=== PATIENT | female | born 2000 | race Two or more races ===

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

== ENCOUNTER 2021-12-19 10:40 | Inpatient (IN) | payer OTHER ==
[2021-12-19 11:32] LABS: BASO % 0.2 % (0-2.0); EOS % 0.1 % (0-4.5); HEMATOCRIT 36.2 % (32.4-45.2); HEMOGLOBIN 11.8 GM/dL (10.7-15.3); LYMPH % 12.5 % (8-40); MCH 28.5 pg (25.7-33.7); MCHC 32.5 g/dl (32.0-36.0); MEAN CELL VOLUME 87.6 fl (80-96); MEAN PLT VOLUME 10.3 fl (7.5-11.1); MONO % 6.4 % (3.8-10.2); NEUT % 80.8 % (42.8-82.8); PLATELET COUNT 131 10^3/uL (134-434); RBC 4.14 M/mm3 (3.60-5.2); RDW 16.3 % (11.6-15.6); WHITE BLOOD COUNT 15.9 K/mm3 (4.0-10.0)
[2021-12-19 11:39] LABS: INR 0.97 (0.83-1.09); PROTHROMBIN TIME (PATIENT) 11.2 SEC (9.7-13.0)
[2021-12-19 11:42] LABS: ACTIVATED PTT 28.7 SECONDS (25.2-36.5)
[2021-12-19 11:57] LABS: BLOOD UREA NITROGEN 4.2 mg/dL (7-18)
[2021-12-19 12:00] LABS: CREATININE 0.5 mg/dL (0.55-1.3)
[2021-12-19 12:29] VITALS: BMI 39.6
[2021-12-19] MEDS ORDERED: ACETAMINOPHEN 325 MG TABLET (FP) PO PRN (13:41)
[2021-12-19] MEDS ORDERED: METHYLERGONOVINE MALEATE 0.2 MG/1 ML AMP IM PRN (13:41)
[2021-12-19] MEDS ORDERED: IBUPROFEN 800 MG/8 ML IJ IVPB PRN (13:41)
[2021-12-19] MEDS ORDERED: ELECTROLYTE-148 SOLN 1,000 ML IV SCH (13:45)
[2021-12-19] MEDS ORDERED: AMPICILLIN - 2 GM in SODIUM CHLORIDE 100 ML IVPB ONE ×2 (13:51→16:30)
[2021-12-19] MEDS ORDERED: morphine SULFATE/PF 1 MG/2 ML (2cc Syringe - QUVA) ONE (14:06)
[2021-12-19 15:07] LABS: HIV INTERPRETATION NEGATIVE (NEGATIVE)
[2021-12-19] MEDS ORDERED: CITRIC ACID/SODIUM CITRATE 30 ML UNIT-DOSE CUP PO ONE (15:18)
[2021-12-19 15:43] LABS: CORD BASE EXCESS -3.6 mmol/L (0-2); CORD HCO3 21.8 mmHg (20-29); CORD PCO2 40.9 mmHg (30-78); CORD pH 7.345 (7.14-7.44)
[2021-12-19 15:46] LABS: CORD HCO3 21.1 mmHg (20-29); CORD pH 7.226 (7.14-7.44)
[2021-12-19] MEDS: OXYTOCIN 20 UNITS in 0.9% NS 20 UNIT/1,000 ML INFUS.BAG IV SCH (17:00)
[2021-12-19] MEDS ORDERED: OXYTOCIN 20 UNITS in 0.9% NS 20 UNIT/1,000 ML INFUS.BAG IV ONE (17:09)
[2021-12-19] MEDS: FERROUS SO4 325 MG TABLET (FP) PO SCH (18:38)
[2021-12-19] MEDS: SENNOSIDES/DOCUSATE COMBO (SENNA PLUS) TABLET (UD) PO PRN (22:31)
[2021-12-19] MEDS: SIMETHICONE 80 MG TAB.CHEW (FP) PO PRN (22:31)
[2021-12-20] MEDS: OXYTOCIN 20 UNITS in 0.9% NS 20 UNIT/1,000 ML INFUS.BAG IV SCH (00:07)
[2021-12-20] MEDS: AMPICILLIN - 1 GM in SODIUM CHLORIDE 100 ML IVPB SCH (07:24)
[2021-12-20] MEDS: FERROUS SO4 325 MG TABLET (FP) PO SCH ×2 (09:27→17:30)
[2021-12-20] MEDS: PRENATAL VITAMINS W/ FOLIC ACID TABLET (FP) PO SCH (09:27)
[2021-12-20 09:33] LABS: BASO % 0.2 % (0-2.0); EOS % 0.5 % (0-4.5); HEMOGLOBIN 11.2 GM/dL (10.7-15.3); LYMPH % 12.5 % (8-40); MCH 28.8 pg (25.7-33.7); MCHC 32.9 g/dl (32.0-36.0); MEAN CELL VOLUME 87.3 fl (80-96); MEAN PLT VOLUME 10.3 fl (7.5-11.1); MONO % 6.8 % (3.8-10.2); PLATELET COUNT 113 10^3/uL (134-434); RBC 3.89 M/mm3 (3.60-5.2); RDW 16.6 % (11.6-15.6)
[2021-12-20] MEDS ORDERED: BISACODYL 10 MG SUPP.RECT RC PRN (13:41)
[2021-12-21] MEDS ORDERED: oxyCODONE HCL 5 MG TABLET PO PRN ×2 (01:41)
[2021-12-21] MEDS: IBUPROFEN 600 MG TABLET (FP) PO PRN ×2 (09:33→21:28)
[2021-12-21] MEDS: PRENATAL VITAMINS W/ FOLIC ACID TABLET (FP) PO SCH (09:33)
[2021-12-21] MEDS: SIMETHICONE 80 MG TAB.CHEW (FP) PO PRN ×2 (09:33→21:28)
[2021-12-21] MEDS: FERROUS SO4 325 MG TABLET (FP) PO SCH ×2 (09:33→17:04)
[2021-12-21] MEDS: AMOX TR/POT CLAV 500MG/125MG TABLETS (FP) PO SCH ×2 (12:37→17:04)
[2021-12-21] MEDS: SENNOSIDES/DOCUSATE COMBO (SENNA PLUS) TABLET (UD) PO PRN (21:30)
[2021-12-22] MEDS: AMOX TR/POT CLAV 500MG/125MG TABLETS (FP) PO SCH ×2 (07:45→16:41)
[2021-12-22] MEDS: FERROUS SO4 325 MG TABLET (FP) PO SCH ×2 (07:45→16:42)
[2021-12-22] MEDS: PRENATAL VITAMINS W/ FOLIC ACID TABLET (FP) PO SCH (09:37)
[2021-12-22 10:15] LABS: BASO % 0.3 % (0-2.0); EOS % 1.9 % (0-4.5); HEMATOCRIT 33.6 % (32.4-45.2); HEMOGLOBIN 10.9 GM/dL (10.7-15.3); LYMPH % 20.9 % (8-40); MCH 28.6 pg (25.7-33.7); MCHC 32.6 g/dl (32.0-36.0); MEAN CELL VOLUME 87.6 fl (80-96); MEAN PLT VOLUME 9.8 fl (7.5-11.1); MONO % 5.6 % (3.8-10.2); NEUT % 71.3 % (42.8-82.8); PLATELET COUNT 136 10^3/uL (134-434); RBC 3.83 M/mm3 (3.60-5.2); RDW 16.2 % (11.6-15.6); WHITE BLOOD COUNT 16.8 K/mm3 (4.0-10.0)
[2021-12-22] MEDS: ENOXAPARIN NA (PORCINE) 40 MG/0.4 ML DISP.SYRIN SQ SCH (12:01)
[2021-12-22 16:03] LABS: BASO % 0.4 % (0-2.0); EOS % 1.7 % (0-4.5); HEMATOCRIT 35.4 % (32.4-45.2); HEMOGLOBIN 11.3 GM/dL (10.7-15.3); LYMPH % 16.3 % (8-40); MCH 28.3 pg (25.7-33.7); MCHC 31.9 g/dl (32.0-36.0); MEAN CELL VOLUME 88.7 fl (80-96); MEAN PLT VOLUME 10.1 fl (7.5-11.1); MONO % 5.4 % (3.8-10.2); NEUT % 76.2 % (42.8-82.8); PLATELET COUNT 157 10^3/uL (134-434); RDW 16.3 % (11.6-15.6); WHITE BLOOD COUNT 16.1 K/mm3 (4.0-10.0)
[2021-12-22 16:20] LABS: BLOOD UREA NITROGEN 11.2 mg/dL (7-18); CALCIUM 8.6 mg/dL (8.5-10.1)
[2021-12-22 16:23] LABS: CREATININE 0.7 mg/dL (0.55-1.3)
[2021-12-22] MEDS: IBUPROFEN 600 MG TABLET (FP) PO PRN (16:42)
[2021-12-22] MEDS: SIMETHICONE 80 MG TAB.CHEW (FP) PO PRN (16:42)
[2021-12-22 22:21] VITALS: RESP 18
[2021-12-23 08:48] VITALS: BP 109/79; PULSE 90; TEMP 98
[2021-12-23] MEDS: ENOXAPARIN NA (PORCINE) 40 MG/0.4 ML DISP.SYRIN SQ SCH (09:59)
[2021-12-23] MEDS: FERROUS SO4 325 MG TABLET (FP) PO SCH (09:59)
[2021-12-23] MEDS: PRENATAL VITAMINS W/ FOLIC ACID TABLET (FP) PO SCH (09:59)
[2021-12-23] MEDS: SIMETHICONE 80 MG TAB.CHEW (FP) PO PRN (09:59)
[2021-12-23] MEDS: AMOX TR/POT CLAV 500MG/125MG TABLETS (FP) PO SCH (09:59)
== END 2021-12-23 12:42 | disposition home or self-care (01) | DRG 788 ==
LOC: JLDR 10:40 → J3W 17:30
PROVIDERS: ADMIT Obstetrics & Gynecology; ATTEND Obstetrics & Gynecology
PROC: 10D00Z1 Extraction of Products of Conception, Low, Open Approach (ICD-10-PCS; principal; 2021-12-19)
DX: O41.03X0 Oligohydramnios, third trimester, not applicable or unspecified (principal); O76 Abnormality in fetal heart rate and rhythm complicating labor and delivery; O48.0 Post-term pregnancy; O69.1XX0 Labor and delivery complicated by cord around neck, with compression, not applicable or unspecified; O99.214 Obesity complicating childbirth; E66.9 Obesity, unspecified; Z3A.40 40 weeks gestation of pregnancy; Z37.0 Single live birth
CPT/HCPCS: 36415; 36600; 80048; 82803; 85025; 85461; 85610; 85730; 86780; 86850; 86900; 86901; 86999; 87389; 88307-TC; C9803-CS; U0003; U0005